=== PATIENT | female | born 1940 | race Caucasian/White ===

== ENCOUNTER → 2023-06-20 | Outpatient (CLI) | payer MEDICARE, OTHER | END | disposition home or self-care (01) | LOC: RAH 13:32 | DX: M25.551 Pain in right hip (principal); E03.9 Hypothyroidism, unspecified; Z91.81 History of falling | CPT/HCPCS: 73502; 73521 ==

== ENCOUNTER → 2025-02-18 | Outpatient (CLI) | payer MEDICARE ==
--- NOTE | 2025-02-19 05:23 | HMCIMG ---
EXAM: CR right Shoulder, 2 View. CLINICAL HISTORY: pain in right shoulder COMPARISON: None provided. FINDINGS: BONES: No acute fracture or aggressive appearing osseous lesion. JOINTS: No dislocation. Glenohumeral osteoarthritis with reduced subacromial interval. SOFT TISSUES: The soft tissues are unremarkable. IMPRESSION: Glenohumeral osteoarthritis with reduced subacromial interval. No fracture or dislocation. /[place]
--- NOTE | 2025-02-19 05:25 | HMCIMG ---
EXAM: CR right elbow, 2 View. CLINICAL HISTORY: pain in right elbow COMPARISON: None provided. FINDINGS: BONES: No acute fracture or aggressive appearing osseous lesion. JOINTS: The joint spaces appear within normal limits. No dislocation. No radiographic evidence of a joint effusion. SOFT TISSUES: The soft tissues are unremarkable. IMPRESSION: No acute osseous abnormality. /[place]
--- NOTE | 2025-02-19 05:33 | HMCIMG ---
EXAM: CR right Knee, 3 View. CLINICAL HISTORY: pain in right knee COMPARISON: None provided. FINDINGS: BONES: No acute fracture or aggressive appearing osseous lesion. 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 IMPRESSION: No acute osseous pathology evident. 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
--- NOTE | 2025-02-19 05:34 | HMCIMG ---
EXAM: CR Chest, 2 View. CLINICAL HISTORY: Contusion of right front wall of thorax, initial encounter COMPARISON: None provided. FINDINGS: LUNGS: The lungs show no infiltrate or other acute finding. PLEURAL SPACES: No evidence of pleural effusion or pneumothorax. MEDIASTINUM: Cardiac size and mediastinal contours within normal limits. BONES: No acute osseous abnormality. IMPRESSION: No acute cardiopulmonary pathology is evident. /[place]
== END | disposition home or self-care (01) ==
LOC: RAH 11:11
DX: S20.211A Contusion of right front wall of thorax, initial encounter (principal); M25.561 Pain in right knee; M25.511 Pain in right shoulder; M25.521 Pain in right elbow; M19.011 Primary osteoarthritis, right shoulder; X58.XXXA Exposure to other specified factors, initial encounter; Y93.89 Activity, other specified; Y92.89 Other specified places as the place of occurrence of the external cause; Y99.8 Other external cause status
CPT/HCPCS: 71046; 73030; 73070; 73562